=== PATIENT | male | born 1990 | race Caucasian/White ===

== ENCOUNTER 2017-05-13 09:53 | Inpatient (IN) | payer MEDICAID, OTHER ==
[~2017-05-13] VITALS: Ht 172.7 cm; Wt 89.0 kg
[2017-05-13] VITALS (17 sets, daily range): BP systolic 83–154; BP diastolic 56–85; PULSE 78–90; RESP 7–25; TEMP 98.1; Ht 172.7 cm; Wt 89.0 kg
[2017-05-13] MEDS ORDERED: ONDANSETRON 4 MG INJ IV STA (11:16)
[2017-05-13] MEDS ORDERED: morphine 4 MG/ML VIAL IV STA (11:16)
[2017-05-13] MEDS ORDERED: SOD CHLORIDE 0.9% 1,000 ML IV STA (11:16)
--- NOTE | 2017-05-13 11:30 | ERD ---
ER Documentation Chief Complaint Date/Time DATE: 05/13/17 TIME: 11:27 Chief Complaint ap with vomiting today HPI Patient is a 26-year-old male who presents to the ED with abdominal pain 1 week. States that the pain came on suddenly 1 week ago in his mid abdomen. He states that the pain comes and goes however in the last 2 days the pain is gotten worse and it is constant. He also had an episode of vomiting today states that there was some blood in his vomit. He had a bowel movement yesterday but states that he is occasionally constipated. He denies radiation of pain. Denies back pain. Denies chest pain or cough or shortness of breath. Has never had abdominal pain like this in the past. Denies headache or dizziness. ROS All systems reviewed and are negative except as per history of present illness. Allergies Allergies: Coded Allergies: No Known Allergy (Unverified , 05/13/17) PMhx/Soc History of Surgery: No Anesthesia Reaction: No Hx Neurological Disorder: No Hx Respiratory Disorders: No Hx Cardiac Disorders: No Hx Psychiatric Problems: No Hx Miscellaneous Medical Probl: No Hx Alcohol Use: Yes (Once a week socially) Hx Tobacco Use: No Smoking Status: Current some day smoker (once a week) Physical Exam Vitals Vital Signs Date Time Temp Pulse Resp B/P Pulse Ox O2 Delivery O2 Flow Rate FiO2 05/13/17 09:56 97.4 66 18 118/59 99 Physical Exam GENERAL: Well-developed, well-nourished male Appears in no mild distress HEAD: Normocephalic, atraumatic. EYES: Pupils are equally reactive bilaterally. EOMs grossly intact. No conjunctival erythema. ENT: Moist mucous membranes. No uvula deviation. No kissing tonsils. No exudates. NECK: Supple. No lymphadenopathy or thyromegaly. No meningismus. negative kernig. negative brudinski. LUNG: Clear to auscultation bilaterally. No rhonchi, wheezing, rales or coarse breath sounds. HEART: Regular rate and rhythm. No murmurs, rubs or gallops. ABDOMEN: No scars, ecchymosis or rashes noted. Soft, and nondistended. Positive bowel sounds in all four quadrants. No rebound tenderness, . (+) McBurneys point tenderness. No CVA tenderness. has guarding and tenderness throughout abdomen mostly in middle and in rlq. BACK: No midline tenderness. NEUROLOGIC: Alert and oriented. Moving all four extremities. 5/5 strength in all extremities. Normal speech. Steady gait. SKIN: Normal color. Warm and dry. No rashes or lesions. Capillary refill < 2 seconds Result Diagram: 05/13/17 1135 05/13/17 1135 Results 24 hrs Laboratory Tests Test 05/13/17 11:35 05/13/17 11:40 White Blood Count 17.010^3/ul Red Blood Count 4.6010^6/ul Hemoglobin 14.0g/dl Hematocrit 41.0% Mean Corpuscular Volume 89.1fl Mean Corpuscular Hemoglobin 30.4pg Mean Corpuscular Hemoglobin Concent 34.1g/dl Red Cell Distribution Width 13.5% Platelet Count 67067^3/UL Mean Platelet Volume 12.2fl Neutrophils % 80.8% Lymphocytes % 11.7% Monocytes % 6.2% Eosinophils % 0.5% Basophils % 0.3% Nucleated Red Blood Cells % 0.0/100WBC Neutrophils # 13.710^3/ul Lymphocytes # 2.010^3/ul Monocytes # 1.110^3/ul Eosinophils # 0.110^3/ul Basophils # 0.110^3/ul Nucleated Red Blood Cells # 0.010^3/ul Sodium Level 141mmol/L Potassium Level 4.4mmol/L Chloride Level 105mmol/L Carbon Dioxide Level 27mmol/L Anion Gap 13 Blood Urea Nitrogen 15mg/dl Creatinine 0.68mg/dl Glucose Level 92mg/dl Calcium Level 9.5mg/dl Total Bilirubin 1.1mg/dl Direct Bilirubin 0.00mg/dl Indirect Bilirubin 1.1mg/dl Aspartate Amino Transf (AST/SGOT) 37IU/L Alanine Aminotransferase (ALT/SGPT) 89IU/L Alkaline Phosphatase 79IU/L Total Protein 7.8g/dl Albumin 4.5g/dl Globulin 3.30g/dl Albumin/Globulin Ratio 1.36 Lipase 52U/L Urine Color YELLOW Urine Clarity CLEAR Urine pH 5.0 Urine Specific [place] 1.024 Urine Ketones NEGATIVEmg/dL Urine Nitrite NEGATIVEmg/dL Urine Bilirubin NEGATIVEmg/dL Urine Urobilinogen NEGATIVEmg/dL Urine Leukocyte Esterase NEGATIVELeu/ul Urine Hemoglobin NEGATIVEmg/dL Urine Glucose NEGATIVEmg/dL Urine Total Protein NEGATIVEmg/dl Current Medications Medications (Trade) Dose Ordered Sig/Sung Route PRN Reason Start Time Stop Time Status Last Admin Dose Admin Sodium Chloride (NS) 1,000 ml @ 1,000 mls/hr Q1H STAT IV 05/13/17 11:16 05/13/17 12:15 DC 05/13/17 11:50 Morphine Sulfate (morphine) 4 mg ONCE STAT IV 05/13/17 11:16 05/13/17 11:19 DC 05/13/17 11:49 Ondansetron HCl 4 mg 4 mg ONCE STAT IV 05/13/17 11:16 05/13/17 11:19 DC 05/13/17 11:49 Piperacillin Sod/ Tazobactam Sod 100 ml @ 200 mls/hr ONCE ONCE IVPB 05/13/17 13:30 05/13/17 13:59 05/13/17 13:16 Sodium Chloride (NS) 1,000 ml @ 1,000 mls/hr Q1H ONCE IV 05/13/17 13:30 05/13/17 14:29 05/13/17 13:17 Procedures/MDM ER COURSE: I kept the patient and/or family informed of laboratory and diagnostic imaging results throughout the emergency room course. MEDICATIONS: fluids, morphine, zofran, zosyn. tolerated well with no adverse reaction. LAB INTERPRETATION: CBC white count of 17 with neutrophil shift of 80.8. CMP showed no evidence of electrolyte abnormalities, severe acidosis, alkalosis, renal failure, or liver disease. Lipase showed no evidence of acute pancreatitis. UA showed no evidence of leukocytes, nitrites or hematuria. MEDICAL DECISION MAKING: This is a 26-year-old male who presents with abdominal pain x 1 week. Vital signs were reviewed. Patient is afebrile. Patient is not hypoxic. Patient is ill -appearing. Patient was given morphine and Zofran tolerated well with no adverse reaction had improvement in symptoms. CT scan is read by radiologist shows mild thickening of the appendix and subtle periappendiceal inflammatory changes highly concerning for acute appendicitis. I consulted with my supervising physician Dr. irizarry. Patient will be admitted. Patient was given Zosyn and another liter of fluids. Patient had improvement in pain. Patient refused any new pain medications and was comfortable with the original morphine dose. Patient was stable at transfer to the ED 1. All questions answered. Departure Diagnosis: Primary Impression: Appendicitis Appendicitis type: acute appendicitis Acute appendicitis type: other Qualified Code: K35.89 - Other acute appendicitis Condition: Stable CONNOR REEVES PA-C May 13, 2017 11:30
[2017-05-13 12:08] LABS: BASOPHIL # 0.1 10^3/ul (0.0-0.1); BASOPHILS % 0.3 % (0.0-2.0); EOSINOPHILS # 0.1 10^3/ul (0.0-0.5); EOSINOPHILS % 0.5 % (0.0-7.0); LYMPHOCYTES % 11.7 % (15.0-51.0); MEAN CORPUSCULAR HEMOGLOBIN 30.4 pg (29.0-33.0); MEAN CORPUSCULAR HGB CONC 34.1 g/dl (32.0-37.0); MEAN CORPUSCULAR VOLUME 89.1 fl (82.0-101.0); MEAN PLATELET VOLUME 12.2 fl (7.4-10.4); MONOCYTE # 1.1 10^3/ul (0.3-0.9); MONOCYTES % 6.2 % (0.0-11.0); NEUTROPHIL # 13.7 10^3/ul (1.6-7.5); NEUTROPHILS % 80.8 % (39.0-77.0); PLATELET COUNT 230 10^3/UL (140-415); RED CELL DISTRIBUTION WIDTH 13.5 % (11.5-14.5)
[2017-05-13 12:18] LABS: ADD UMIC NO; UR ASCORBIC ACID NEGATIVE (NEGATIVE); UR BILIRUBIN (Dip) NEGATIVE (NEGATIVE); UR BLOOD (Dip) NEGATIVE (NEGATIVE); UR CLARITY CLEAR (CLEAR); UR COLOR YELLOW (YELLOW); UR GLUCOSE (Dip) NEGATIVE (NEGATIVE); UR KETONES (Dip) NEGATIVE (NEGATIVE); UR LEUKOCYTE ESTERASE (Dip) NEGATIVE Leu/ul (NEGATIVE); UR NITRITE (Dip) NEGATIVE (NEGATIVE); UR SPECIFIC GRAVITY (Dip) 1.024 (1.003-1.030); UR TOTAL PROTEIN (Dip) NEGATIVE (NEGATIVE); UR UROBILINOGEN (Dip) NEGATIVE (NEGATIVE)
[2017-05-13 12:35] LABS: ALBUMIN 4.5 g/dl (3.3-4.9); ALBUMIN/GLOBULIN RATIO 1.36; BILIRUBIN,INDIRECT 1.1 mg/dl (0-1.1); BILIRUBIN,TOTAL 1.1 mg/dl (0.2-1.3); CALCIUM 9.5 mg/dl (8.4-10.2); CREATININE 0.68 mg/dl (0.61-1.24); POTASSIUM 4.4 mmol/L (3.5-5.1); TOTAL PROTEIN 7.8 g/dl (6.1-8.1)
--- NOTE | 2017-05-13 12:42 | RADRPT ---
PROCEDURE: CT Abdomen and Pelvis without contrast. CLINICAL INDICATION: Right lower quadrant pain. Vomiting and diarrhea. TECHNIQUE: CT scan of the abdomen and pelvis without contrast was performed on a multi-slice CT [facility] without intravenous contrast. Coronal and sagittal reformatted images were obtained from the axial source images. Images were reviewed on a high-resolution PACS workstation. One or more of the following does reduction techniques were used: Automated exposure control; adjustment of the mA an d/or kV according to patient size; use of the aorta of reconstruction technique. The total exam CTD I equals 17.48 mGy and the total exam DLP equals 1218.3 mGy-cm. COMPARISON: None available. FINDINGS: There are minimal dependent changes in the posterior lower lobes. Heart size is normal, and there i s no evidence of pericardial thickening or effusion. There is diffuse decreased attenuation of the hepatic parenchyma consistent with fatty infiltration. The liver, spleen, and pancreas are otherwise normal. The gallbladder is normal. The adrenal glands are normal. There is mild fullness of the right renal collecting system manifest by a decreased renal sinus fat compared to the left. This may be within normal limits for this sonja ent. No renal calcifications are seen and there is no dilatation of the ureter. The aorta is of normal caliber. There is no retroperitoneal lymph node enlargment. There is no evidence of large or small bowel obstruction. The appendix appears mildly thickened and fluid-filled with mild adjacent inflammatory changes. There are no other areas of inflammatory fernandez e. No free fluid or fluid collections are identified. There is a tiny periumbilical hernia containin g only fat. No enlarged pelvic sidewall lymph nodes are seen. The bladder is within normal limits. No free fl uid is identified. The inguinal regions are unremarkable. The bones are intact. IMPRESSION: 1. Mild thickening of the appendix and subtle periappendiceal inflammatory changes highly concernin g for acute appendicitis. There is no evidence of fluid collection. 2. Fatty infiltration of the liver. 3. Mild fullness of the right renal collecting system without reena hydronephrosis or associated re nal or ureteral calcification. RPTAT: KK .Rangel Elliott MD, Date Time Electronically viewed and signed by .Rangel Elliott MD, on 05/13/2017 12:42 .B/
[2017-05-13] MEDS ORDERED: SOD CHLORIDE 0.9% 1,000 ML IV ONE (13:30)
[2017-05-13] MEDS ORDERED: PIPER-TAZO 3.375 GM IV (PMX) 100 ML IVPB ONE (13:30)
[2017-05-13] MEDS ORDERED: NACL 0.9% 3 ML SYG IV SCH (14:00)
[2017-05-13] MEDS ORDERED: morphine 2 MG INJ IV PRN ×2 (14:00→19:00)
[2017-05-13] MEDS ORDERED: ACETAMINOPHEN 325 MG TAB PO PRN (14:00)
[2017-05-13] MEDS ORDERED: HYDROCODONE/APAP (5/325) TAB PO PRN (14:00)
[2017-05-13] MEDS ORDERED: ONDANSETRON 4 MG INJ IV PRN ×3 (14:00→19:30)
--- NOTE | 2017-05-13 14:10 | HP ---
Date/Time of Note Date/Time of Note DATE: 05/13/17 TIME: 14:06 Assessment/Plan VTE Prophylaxis VTE Prophylaxis Intervention: SCD's Assessment/Plan Chief Complaint/Hosp Course 1. Acute abdominal pain. CT evidence of acute appendicitis. The patient will be kept n.p.o. The patient will be provided with adequate pain control. The patient will be started on IV fluids. The patient was started on empiric antibiotics. General surgery consult has already been obtained. 2. Leukocytosis. Most probably secondary to #1. Management as per #1. Plan: The patient will be admitted to inpatient medical/surgical floor. The patient will be kept NPO. The patient will be started on DVT prophylaxis. The patient will remain a full code. Activities will be as tolerated. The rest of the patient's management will be based on the clinical course, inputs from consultants, and the results of diagnostic studies. Based on the patient's clinical presentation, he most probably requires at least 1 midnight's stay for further management and evaluation of his clinical presentation. The case and management of this patient was fully discussed with Dr. Collins. Problems: HPI/ROS Admit Date/Time Admit Date/Time Hx of Present Illness Reason for admission: Abdominal pain. Consultants 1. Дмитрий Baxter MD, General Surgery. This is a 26-year-old male who denies any significant past medical history. He came to the emergency room with chief complaint of abdominal pain. The patient verbalized that the abdominal pain has been going on and off for the past 3 weeks or so. However, the abdominal pain became constant with associated 1 episode of nonbilious, slightly pink tinged vomit on 05/13/2017. He has been complaining of frequent urination. The patient complained of multiple episodes of bowel movements. However, he denied any diarrhea. He denied any fevers. In the emergency room, the patient was noticed to have leukocytosis with WBC of 17.0. Patient underwent a CT scan of the abdomen and pelvis that showed mild thickening of the appendix and subtle periappendiceal inflammatory changes highly concerning for acute appendicitis. The patient was treated with IV fluids, analgesics, and IV antibiotics. The on-call surgeon was notified by the ER physician. ROS Constitutional: poor po Eyes: no complaints ENT: no complaints Respiratory: no complaints Cardiovascular: no complaints Gastrointestinal: nausea, pain, vomiting Genitourinary: other (Urinary frequency.) Musculoskeletal: no complaints Skin: no complaints Neurologic: no complaints Endocrine: no complaints Lymphatic: no complaints Psychological: no complaints Immunologic: no complaints PMH/Family/Social Past Medical History Medical History: no pertinent history Past Surgical History Past Surgical Hx: no surgical history Social History Works with construction. Alcohol Use: occasionally Smoking Status: Current some day smoker (once a week) Drug Use: none Exam/Review of Systems Vital Signs Vitals Vital Signs Date Time Temp Pulse Resp B/P Pulse Ox O2 Delivery O2 Flow Rate FiO2 05/13/17 09:56 97.4 66 18 118/59 99 Exam Exam General: Adequately build 26 year-old male lying in bed in no apparent distress. HEENT: Normocephalic, atraumatic. Eyes: Anicteric sclerae, conjunctivae clear. ENT: Nasal septum midline, oral mucosa moist. Neck supple, no JVD noticed. Respiratory: Bilaterally clear breath sounds. No use of accessory muscles of respiration. No adventitious breath sounds. Cardiovascular: S1, S2 heard. No murmurs or gallops. Abdomen: Soft and nondistended. Bowel sounds positive in all 4 quadrants. Right lower quadrant tenderness. No guarding. Genitourinary: Deferred. Extremities: No cyanosis, no clubbing, no edema. Peripheral pulses palpable. Neurologic: Cranial nerves II through XII grossly intact. The patient is awake, alert, and oriented. Skin: Normal skin turgor. No skin rashes. Labs Result Diagram: 05/13/17 1135 05/13/17 1135 Medications Medications Current Medications Sodium Chloride 1,000 ml @ 1,000 mls/hr Q1H ONCE IV Last administered on t 13:17; Admin Dose 1,000 MLS/HR; Start 05/13/17 at 13:30; Stop 05/13/17 at 14:29 Sodium Chloride (NS) 1,000 ml @ 125 mls/hr Q8H IV ; Start 05/13/17 at 13:57 Ondansetron HCl (Zofran Inj) 4 mg Q6H PRN IV NAUSEA AND/OR VOMITING; Start at 14:00 Acetaminophen (Tylenol Tab) 650 mg Q6H PRN PO PAIN LEVEL 1-3 OR FEVER; Start at 14:00 Acetaminophen/ Hydrocodone Bitart ([place] (5/325)) 1 tab Q6H PRN PO MODERATE PAIN LEVEL 4-6; Start 05/13/17 at 14:00 Morphine Sulfate 2 mg 2 mg Q4H PRN IV SEVERE PAIN LEVEL 7-10; Start 05/13/17 at 14:00 Piperacillin Sod/ Tazobactam Sod (Zosyn 3.375gm/ 100 ml (Pmx)) 100 ml @ 200 mls /hr Q8 IVPB ; Start 05/13/17 at 22:[address] Abdomen and Pelvis IMPRESSION: 1. Mild thickening of the appendix and subtle periappendiceal inflammatory changes highly concerning for acute appendicitis. There is no evidence of fluid collection. 2. Fatty infiltration of the liver. 3. Mild fullness of the right renal collecting system without reena hydronephrosis or associated renal or ureteral calcification. ENRICO TRACEY NP May 13, 2017 14:10
--- NOTE | 2017-05-13 14:24 | QN ---
Documentation Comment I have seen and evaluated the patient along with the PA provider. I agree with the evaluation and plan of care. Please see their documentation for full ER course and evaluation. Initial presentation: Right lower quadrant abdominal pain and vomiting 2 days worse this morning, last p.o. intake was last night at 7 PM On Physical exam: GENERAL: Well-developed, well-nourished, well-hydrated, in no apparent distress , looks nontoxic in appearance HEENT: Moist mucous membranes, pink conjunctiva, no cervical spine tenderness or step-off deformities NEURO: Alert and oriented 3, pupils equal round reactive to light, no focal deficits CARDIAC: Regular rate and rhythm, no murmurs rubs or gallops SKIN: Warm and dry to touch, no abrasions, contusions, or hematomas, no lacerations, no ecchymosis, no target lesions, and without ulcers Abdominal: Focal tenderness the right upper quadrant with a positive Villaseñor sign Assessment and plan: Leukocytosis with CT scan of the abdomen and pelvis indicating thickening of the appendix with periappendiceal inflammatory changes. I ordered Zosyn 3.375 g IV and ordered n.p.o. status I discussed the current laboratory data, diagnostic imaging and emergency care provided. Admitting team: Hospitalist Admitting team indication: Insurance directed Consulting services: Dr. Baxter, general surgeon notified, patient will most likely undergo surgical appendectomy today. Diagnostic impression: Acute appendicitis ANNABELLA YOUNG MD May 13, 2017 14:24
[2017-05-13] MEDS: SOD CHLORIDE 0.9% 1,000 ML IV SCH ×2 (14:38→21:57)
--- NOTE | 2017-05-13 17:42 | CONS ---
Date/Time of Note Date/Time of Note DATE: 05/13/17 TIME: 17:39 Assessment/Plan Assessment/Plan Additional Assessment/Plan Acute appendicitis Plan: Patient will require laparoscopic appendectomy possible open. I have discussed the procedure, outcomes, expectations, alternatives and risks in detail with the patient who has an excellent understanding of the nature of his situation and agrees to the proposed plan of therapy as outlined. Consultation Date/Type/Reason Admit Date/Time Date of Consultation: May 13, 2017 Reason for Consultation Acute appendicitis Hx of Present Illness Patient is an otherwise healthy 26-year-old male who presents with a 1 day history of nonspecific abdominal pain which had localized to the right lower quadrant. In the emergency room he was noted to have a tender right lower quadrant, and elevated white blood cell count, and a CT compatible with acute appendicitis. Constitutional: no complaints Eyes: no complaints ENT: no complaints Respiratory: no complaints Cardiovascular: no complaints Gastrointestinal: nausea, pain (Lower quadrant), vomiting Genitourinary: no complaints, other (Urinary frequency.) Musculoskeletal: no complaints Skin: no complaints Neurologic: no complaints Endocrine: no complaints Lymphatic: no complaints Psychological: no complaints Immunologic: no complaints Past Medical History Medical History: no pertinent history Past Surgical History Past Surgical Hx: no surgical history Family History Significant Family History: no pertinent family hx Social History Alcohol Use: occasionally Smoking Status: Unknown if ever smoked Drug Use: none Exam/Review of Systems Vital Signs Vitals Vital Signs Date Time Temp Pulse Resp B/P Pulse Ox O2 Delivery O2 Flow Rate FiO2 05/13/17 14:42 98.1 58 18 119/58 100 Room Air Exam Psych: no complaints Head: normocephalic Eyes: nl conjunctiva ENMT: nl external ears & nose Respiratory: clear to auscultation Cardiovascular: regular rate and rhythm Gastrointestinal: soft, tender (Lower quadrant with guarding but no rebound) Genitourinary - Male: nl penis Musculoskeletal: nl extremities to inspection Extremities: normal pulses Skin: nl turgor Lymph: nl lymph nodes Results Result Diagram: 05/13/17 1135 05/13/17 1135 Results 24 hrs Laboratory Tests Test 05/13/17 11:35 05/13/17 11:40 White Blood Count 17.0 H Red Blood Count 4.60 L Hemoglobin 14.0 Hematocrit 41.0 L Mean Corpuscular Volume 89.1 Mean Corpuscular Hemoglobin 30.4 Mean Corpuscular Hemoglobin Concent 34.1 Red Cell Distribution Width 13.5 Platelet Count 230 Mean Platelet Volume 12.2 H Neutrophils % 80.8 H Lymphocytes % 11.7 L Monocytes % 6.2 Eosinophils % 0.5 Basophils % 0.3 Nucleated Red Blood Cells % 0.0 Neutrophils # 13.7 H Lymphocytes # 2.0 Monocytes # 1.1 H Eosinophils # 0.1 Basophils # 0.1 Nucleated Red Blood Cells # 0.0 Sodium Level 141 Potassium Level 4.4 Chloride Level 105 Carbon Dioxide Level 27 Anion Gap 13 Blood Urea Nitrogen 15 Creatinine 0.68 Glucose Level 92 Calcium Level 9.5 Total Bilirubin 1.1 Direct Bilirubin 0.00 Indirect Bilirubin 1.1 Aspartate Amino Transf (AST/SGOT) 37 Alanine Aminotransferase (ALT/SGPT) 89 H Alkaline Phosphatase 79 Total Protein 7.8 Albumin 4.5 Globulin 3.30 H Albumin/Globulin Ratio 1.36 Lipase 52 Urine Color YELLOW Urine Clarity CLEAR Urine pH 5.0 Urine Specific [place] 1.024 Urine Ketones NEGATIVE Urine Nitrite NEGATIVE Urine Bilirubin NEGATIVE Urine Urobilinogen NEGATIVE Urine Leukocyte Esterase NEGATIVE Urine Hemoglobin NEGATIVE Urine Glucose NEGATIVE Urine Total Protein NEGATIVE Medications Medications Current Medications Sodium Chloride (NS) 1,000 ml @ 125 mls/hr Q8H IV Last administered on t 14:38; Admin Dose 125 MLS/HR; Start 05/13/17 at 13:57 Ondansetron HCl (Zofran Inj) 4 mg Q6H PRN IV NAUSEA AND/OR VOMITING; Start at 14:00 Acetaminophen (Tylenol Tab) 650 mg Q6H PRN PO PAIN LEVEL 1-3 OR FEVER; Start at 14:00 Acetaminophen/ Hydrocodone Bitart ([place] (5/325)) 1 tab Q6H PRN PO MODERATE PAIN LEVEL 4-6; Start 05/13/17 at 14:00 Morphine Sulfate 2 mg 2 mg Q4H PRN IV SEVERE PAIN LEVEL 7-10; Start 05/13/17 at 14:00 Piperacillin Sod/ Tazobactam Sod (Zosyn 3.375gm/ 100 ml (Pmx)) 100 ml @ 200 mls /hr Q8 IVPB ; Start 05/13/17 at 22:00 TIM EDWARDS MD May 13, 2017 17:42
[2017-05-13] MEDS ORDERED: ROCURONIUM 50 MG INJ ONE (17:45)
[2017-05-13] MEDS ORDERED: LIDOCAINE 2% (SDV) 5 ML INJ ONE (17:45)
[2017-05-13] MEDS ORDERED: MIDAZOLAM 1 MG/ML 2 ML INJ ONE (17:45)
[2017-05-13] MEDS ORDERED: PROPOFOL 20 ML ONE (17:45)
[2017-05-13] MEDS ORDERED: NS IVPB ONE (18:01)
[2017-05-13] MEDS ORDERED: [UNRECOGNIZED DRUG - OTHER] IVPB ONE (18:01)
[2017-05-13] MEDS ORDERED: AMPICILLIN IVPB ONE (18:01)
[2017-05-13] MEDS ORDERED: DEXAMETHASONE 4 MG/ML 1 ML INJ ONE (18:01)
[2017-05-13] MEDS ORDERED: ONDANSETRON 4 MG INJ ONE ×2 (18:01→19:07)
[2017-05-13] MEDS ORDERED: PIPER-TAZO 3.375 GM IV (PMX) 100 ML ONE (18:06)
[2017-05-13] MEDS ORDERED: BUPIVACAINE 0.5%/EPI (SDV) 30 ML INJ INJ ONE (18:13)
--- NOTE | 2017-05-13 18:38 | OPR ---
Date/Time of Note Date/Time of Note DATE: 05/13/17 TIME: 18:34 Operative Report Procedure Date: May 13, 2017 Preoperative Diagnosis Acute appendicitis Postoperative Diagnosis Acute appendicitis without localized peritonitis Operation Performed Laparoscopic appendectomy Surgeon Vee Anesthesia Type: general Anesthesiologist: DESTINEY PEARCE Estimated Blood Loss: 0 - 10 ml's Transfusion Required: no Specimens Appendix Grafts/Implants: none Complications: no Pt Condition Post Procedure: stable Disposition: PACU Indications Acute appendicitis Operative\Procedure Findings Acutely inflamed intraperitoneal appendix without localized peritonitis Procedure Description After satisfactory general endotracheal anesthesia was achieved, the abdomen was prepped and draped in the usual fashion. The abdomen was insufflated with carbon dioxide through an umbilical Veress needle to 15 mmHg pressure. The Veress needle was removed and the umbilical incision extended to 5 mm through which a 5 mm trocar was placed. A 5 mm 0 lens was placed. Laparoscopy showed an acutely inflamed intraperitoneal appendix without localized peritonitis. Under direct visualization a 5 mm suprapubic trocar was placed as well as a 12 mm trocar midway between the umbilicus and the xiphoid. A window was made in the mesoappendix through which a vascular linear cutter was placed across the base of the cecum, closed and fired disconnecting the cecum from the appendix with the exception of tissue bridge covered with victor m. This tissue bridge was doubly hemoclipped and divided. A second firing of the vascular linear cutter across the mesoappendix free the appendix. Again the mesoappendix was attached via small tissue bridge. This was divided over a clip. The appendix was placed intact into an Endo Catch removed via the 12 mm port site. Hemostasis was total and irrigant returned clear. Fascia of the epigastrium was closed with a single suture of #1 Vicryl placed with the assistance of a Filipe Julee device. The abdomen was then desufflated and the trochars were removed. The skin punctures were infiltrated with 30 cc of 0.25% Marcaine with epinephrine and closed with victor m. Sponge and needle counts were reported as correct 2. TIM EDWARDS MD May 13, 2017 18:38
[2017-05-13] MEDS ORDERED: SUGAMMADEX SODIUM 200 MG/2 ML VIAL IV ONE (18:40)
[2017-05-13] MEDS ORDERED: ALBUTEROL 0.083% (NEB) 2.5 MG/3 ML AMP ONE (18:43)
[2017-05-13] MEDS ORDERED: PROVENTIL HFA 6.7GM INHALER ONE (18:43)
[2017-05-13] MEDS ORDERED: NALOXONE (0.4 MG/ML) INJ ONE (18:52)
[2017-05-13] MEDS ORDERED: OXYCODONE/ACETAMINOPHEN (5/325) TAB PO PRN ×4 (19:00→19:30)
[2017-05-13] MEDS ORDERED: morphine 2 MG INJ ONE (19:07)
[2017-05-13] MEDS ORDERED: KETOROLAC 30 MG INJ ONE (19:14)
[2017-05-13] MEDS ORDERED: HYDROmorphONE (0.2 MG/ML) 10ML SYG IV ONE (19:30)
[2017-05-13] MEDS ORDERED: METOCLOPRAMIDE 10 MG INJ IV PRN (19:30)
[2017-05-13] MEDS ORDERED: KETOROLAC 30 MG INJ IV PRN (19:30)
[2017-05-13] MEDS ORDERED: EPHEDrine SULFATE 50 MG/5 ML SYG IV PRN (19:30)
[2017-05-13] MEDS ORDERED: ALBUMIN HUMAN 5% 250 ML IV PRN (19:30)
[2017-05-13] MEDS ORDERED: HYDROmorphONE (0.2 MG/ML) 10ML SYG IV PRN ×3 (19:30)
[2017-05-13] MEDS ORDERED: ALBUTEROL 0.083% (NEB) 2.5 MG/3 ML AMP HHN PRN (19:30)
[2017-05-13] MEDS ORDERED: hydrALAzine 20 MG INJ IV PRN (19:30)
[2017-05-13] MEDS: PIPER-TAZO 3.375 GM IV (PMX) 100 ML IVPB SCH (21:45)
[2017-05-14] MEDS: SOD CHLORIDE 0.9% 1,000 ML IV SCH ×2 (01:22→12:41)
[2017-05-14 02:10] VITALS: BP 108/59; RESP 20
[2017-05-14] MEDS: PIPER-TAZO 3.375 GM IV (PMX) 100 ML IVPB SCH ×2 (05:29→14:08)
[2017-05-14 06:29] LABS: BASOPHILS % 0.1 % (0.0-2.0); HEMATOCRIT 38.9 % (42.0-52.0); HEMOGLOBIN 13.3 g/dl (14.0-18.0); LYMPHOCYTES # 0.9 10^3/ul (0.8-2.9); LYMPHOCYTES % 7.6 % (15.0-51.0); MEAN CORPUSCULAR HGB CONC 34.2 g/dl (32.0-37.0); MEAN CORPUSCULAR VOLUME 87.8 fl (82.0-101.0); MEAN PLATELET VOLUME 12.4 fl (7.4-10.4); MONOCYTE # 0.2 10^3/ul (0.3-0.9); MONOCYTES % 1.7 % (0.0-11.0); NEUTROPHILS % 90.3 % (39.0-77.0); PLATELET COUNT 242 10^3/UL (140-415); RED BLOOD COUNT 4.43 10^6/ul (4.70-6.10); RED CELL DISTRIBUTION WIDTH 13.4 % (11.5-14.5); WHITE BLOOD COUNT 12.2 10^3/ul (4.8-10.8)
[2017-05-14 06:49] LABS: MAGNESIUM 1.9 mg/dl (1.7-2.5); PHOSPHORUS 4.6 mg/dl (2.5-4.9)
[2017-05-14 07:06] LABS: ALBUMIN 3.8 g/dl (3.3-4.9); ALBUMIN/GLOBULIN RATIO 1.22; BILIRUBIN,INDIRECT 1.3 mg/dl (0-1.1); BILIRUBIN,TOTAL 1.3 mg/dl (0.2-1.3); CALCIUM 9.2 mg/dl (8.4-10.2); CREATININE 0.62 mg/dl (0.61-1.24); TOTAL PROTEIN 6.9 g/dl (6.1-8.1)
[2017-05-14 08:00] VITALS: BP 118/57; RESP 20
--- NOTE | 2017-05-14 13:03 | PN ---
Date/Time of Note Date/Time of Note DATE: 05/14/17 TIME: 13:01 Assessment/Plan Assessment/Plan Chief Complaint/Hosp Course Patient is an otherwise healthy 26-year-old male who presents with a 1 day history of nonspecific abdominal pain which had localized to the right lower quadrant. In the emergency room he was noted to have a tender right lower quadrant, and elevated white blood cell count, and a CT compatible with acute appendicitis. Problems: Assessment/Plan Abd benign OK to disch home today Subjective 24 Hr Interval Summary PO day #1 Excellent recovery Exam/Review of Systems Vital Signs Vitals Vital Signs Date Time Temp Pulse Resp B/P Pulse Ox O2 Delivery O2 Flow Rate FiO2 05/14/17 08:00 98.1 75 20 118/57 96 05/13/17 21:00 Nasal Cannula 2.0 Intake and Output 05/13/17 05/13/17 05/14/17 15:00 23:00 07:00 Intake Total 1700 ml 1530 ml Output Total 710 ml Balance 990 ml 1530 ml Results Result Diagram: 05/14/17 0558 05/14/17 0558 TIM EDWARDS MD May 14, 2017 13:02
[2017-05-14 14:00] VITALS: BP 114/62; RESP 18
--- NOTE | 2017-05-14 14:31 | PDOCDIS ---
Discharge Instructions DIAGNOSIS Discharge Diagnosis Acute appendicitis. Status post laparoscopic appendectomy. CONDITION Patient Condition: Stable HOME CARE INSTRUCTIONS: Diet Instructions: RegularSpecial Diet: REGULR DIET FOLLOW UP/APPOINTMENTS Follow-up Plan Дмитрий Baxter MD Specialty General Surgery Office Address [address] [place] [address] Office OTHER ORDERS: Other Orders: 1. Regular diet as tolerated. 2. Keep incisions clean and dry. May shower. Avoid tub baths and swimming for 2 weeks. Use mild soap and pat dry the incisions. 3. Take medications as needed for pain. 4. Call the surgeon or go to the nearest ER if you have severe abdominal pain despite pain medications. 5. Call the surgeon or go to the nearest ER if you notice any bleeding or secretions coming out of the incision sites. Also call the surgeon if you notice any blood in stool, if you have persistent fevers, or any other unusual signs or symptoms. 6. Follow-up with the surgeon Dr. Baxter in 7 days for incision check. 7. Avoid heavy lifting [more than 25 pounds] for 8 weeks. ENRICO TRACEY NP May 14, 2017 14:31
[2017-05-14] MEDS ORDERED: HYDR-3498 PO (14:32)
[2017-05-14] MEDS ORDERED: CEPH500C PO (14:38)
--- NOTE | 2017-05-14 15:29 | DS ---
Date/Time of Note Date/Time of Note DATE: 05/14/17 TIME: 15:27 Discharge Summary Admission/Discharge Info Admit Date/Time May 13, 2017 at 13:23 Discharge Date/Time Discharge Diagnosis Acute appendicitis. Status post laparoscopic appendectomy. Consults Дмитрий Baxter MD, General Surgery. Procedures Preoperative Diagnosis Acute appendicitis Postoperative Diagnosis Acute appendicitis without localized peritonitis Operation Performed Laparoscopic appendectomy. CT Scan of the Abdomen and Pelvis IMPRESSION: 1. Mild thickening of the appendix and subtle periappendiceal inflammatory changes highly concerning for acute appendicitis. There is no evidence of fluid collection. 2. Fatty infiltration of the liver. 3. Mild fullness of the right renal collecting system without reena hydronephrosis or associated renal or ureteral calcification. Hx of Present Illness Reason for admission: Abdominal pain. Consultants 1. Дмитрий Baxter MD, General Surgery. This is a 26-year-old male who denies any significant past medical history. He came to the emergency room with chief complaint of abdominal pain. The patient verbalized that the abdominal pain has been going on and off for the past 3 weeks or so. However, the abdominal pain became constant with associated 1 episode of nonbilious, slightly pink tinged vomit on 05/13/2017. He has been complaining of frequent urination. The patient complained of multiple episodes of bowel movements. However, he denied any diarrhea. He denied any fevers. In the emergency room, the patient was noticed to have leukocytosis with WBC of 17.0. Patient underwent a CT scan of the abdomen and pelvis that showed mild thickening of the appendix and subtle periappendiceal inflammatory changes highly concerning for acute appendicitis. The patient was treated with IV fluids, analgesics, and IV antibiotics. The on-call surgeon was notified by the ER physician. Hospital Course The patient was taken to the OR by the general surgeon and the patient underwent a laparoscopic appendectomy. Postoperatively, the patient was admitted to inpatient medical surgical floor. The patient was started on a clear liquid diet and the patient's diet was advanced as tolerated to a regular consistency diet without any significant gastrointestinal symptoms. The patient was encouraged on frequent use of incentive spirometry and frequent ambulation. The patient was cleared by general surgery to be discharged home. The patient's leukocytosis has improved. General surgeon recommended to discharge home on a oral antibiotics. Hence the patient will be discharged home on oral antibiotics. Discharge Instructions 1. Regular diet as tolerated. 2. Keep incisions clean and dry. May shower. Avoid tub baths and swimming for 2 weeks. Use mild soap and pat dry the incisions. 3. Take medications as needed for pain. 4. Call the surgeon or go to the nearest ER if you have severe abdominal pain despite pain medications. 5. Call the surgeon or go to the nearest ER if you notice any bleeding or secretions coming out of the incision sites. Also call the surgeon if you notice any blood in stool, if you have persistent fevers, or any other unusual signs or symptoms. 6. Follow-up with the surgeon Dr. Baxter in 7 days for incision check. 7. Avoid heavy lifting [more than 25 pounds] for 8 weeks. The patient verbalized understanding of his discharge instructions. At this time I would like to thank Dr. Baxter for seeing the patient, doing the necessary procedures, and providing clinical recommendations. Case discussed with Dr. Collins. Home Meds Active Scripts Docusate Sodium* (Colace*) 100 Mg Capsule, 100 MG PO BID, #20 CAP Prov:ENRICO TRACEY NP 05/14/17 Cephalexin* (Cephalexin*) 500 Mg Capsule, 500 MG PO Q8 for 7 Days, #21 CAP Prov:ENRICO TRACEY NP 05/14/17 Hydrocodone Bit-Acetaminophen (Hydrocodone Bit-APAP) 5-325MG Tablet, 1 TAB PO Q6H Y for MODERATE PAIN LEVEL 4-6, #14 TAB Prov:ENRICO TRACEY NP 05/14/17 Follow-up Plan Дмитрий Baxter MD Special[facility] General Surgery Office Address [address] [place] [address] Office Primary Care Provider Care Physician No Primary Time spent on discharge: > 30 minutes Pending Labs Laboratory Tests Test 05/14/17 05:58 White Blood Count 12.210^3/ul (4.8-10.8) Red Blood Count 4.4310^6/ul (4.70-6.10) Hemoglobin 13.3g/dl (14.0-18.0) Hematocrit 38.9% (42.0-52.0) Mean Corpuscular Volume 87.8fl (82.0-101.0) Mean Corpuscular Hemoglobin 30.0pg (29.0-33.0) Mean Corpuscular Hemoglobin Concent 34.2g/dl (32.0-37.0) Red Cell Distribution Width 13.4% (11.5-14.5) Platelet Count 27325^3/UL (140-415) Mean Platelet Volume 12.4fl (7.4-10.4) Neutrophils % 90.3% (39.0-77.0) Lymphocytes % 7.6% (15.0-51.0) Monocytes % 1.7% (0.0-11.0) Eosinophils % 0.0% (0.0-7.0) Basophils % 0.1% (0.0-2.0) Nucleated Red Blood Cells % 0.0/100WBC (0.0-0.0) Neutrophils # 11.010^3/ul (1.6-7.5) Lymphocytes # 0.910^3/ul (0.8-2.9) Monocytes # 0.210^3/ul (0.3-0.9) Eosinophils # 0.010^3/ul (0.0-0.5) Basophils # 0.010^3/ul (0.0-0.1) Nucleated Red Blood Cells # 0.010^3/ul (0.0-0.0) Sodium Level 137mmol/L (135-144) Potassium Level 4.0mmol/L (3.5-5.1) Chloride Level 105mmol/L (97-110) Carbon Dioxide Level 26mmol/L (21-31) Anion Gap 10 (8-16) Blood Urea Nitrogen 10mg/dl (7-20) Creatinine 0.62mg/dl (0.61-1.24) Glucose Level 130mg/dl (70-220) Calcium Level 9.2mg/dl (8.4-10.2) Phosphorus Level 4.6mg/dl (2.5-4.9) Magnesium Level 1.9mg/dl (1.7-2.5) Total Bilirubin 1.3mg/dl (0.2-1.3) Direct Bilirubin 0.00mg/dl (0.00-0.20) Indirect Bilirubin 1.3mg/dl (0-1.1) Aspartate Amino Transf (AST/SGOT) 32IU/L (15-46) Alanine Aminotransferase (ALT/SGPT) 72IU/L (13-69) Alkaline Phosphatase 70IU/L (42-121) Total Protein 6.9g/dl (6.1-8.1) Albumin 3.8g/dl (3.3-4.9) Globulin 3.10g/dl (1.3-3.2) Albumin/Globulin Ratio 1.22 ENRICO TRACEY NP May 14, 2017 15:29
[2017-05-14] MEDS ORDERED: DOCU-144 PO (15:32)
== END 2017-05-14 17:00 | disposition home or self-care (01) | DRG 343 ==
LOC: FTE 09:53 → MS2 13:23
PROVIDERS: ADMIT Internal Medicine; ATTEND Internal Medicine
PROC: 0DTJ4ZZ Resection of Appendix, Percutaneous Endoscopic Approach (ICD-10-PCS; principal; 2017-05-13 17:00)
DX: K35.80 Unspecified acute appendicitis (principal)
CPT/HCPCS: 36415; 74176; 80053; 81003; 83690; 83735; 84100; 85025; 88304; 96361; 96374; 96375; J0295; J1100; J1170; J1885; J2250; J2270; J2310; J2405; J2543; J3010; J7030

== ENCOUNTER 2018-07-12 18:39 | Emergency (ER) | END 2018-07-12 19:58 | disposition home or self-care (01) ==